=== PATIENT | female | born 2000 | race African-American/Black ===

== ENCOUNTER 2019-10-17 15:47 | Emergency (ER) | payer OTHER ==
[~2019-10-17] VITALS: Ht 157.5 cm; Wt 48.1 kg
[~2019-10-17 15:47] MED LIST: AZITHROMYC200 MG/52 PO; NOHOMEMEDICATIONS; PROAIR HFA8.5 GM IH
[2019-10-17 16:49] LABS: ABSOLUTE NEUTROPHILS 8.1 thou/uL (1.4-8.2); BASOPHILS 0.5 % (0.0-2.0); EOSINOPHILS 1.1 % (0.0-3.0); HEMATOCRIT 34.2 % (37.0-47.0); HEMOGLOBIN 12.1 gm/dL (12.0-15.0); LYMPHOCYTES 15.1 % (24.0-44.0); MCH 32.8 pg (26.0-34.0); MCHC 35.4 g/dL (28.0-37.0); MCV 92.6 fL (80.0-100.0); PLATELET COUNT 302 thou/uL (150-400); POLYS 76.3 % (36.0-66.0); RBC 3.69 mil/uL (4.20-5.00); RDW 13.3 % (10.5-14.5); WBC 10.7 thou/uL (4.0-11.0)
[2019-10-17 16:52] LABS: CALCIUM 8.1 mg/dL (8.5-10.1); CREATININE 0.6 mg/dL (0.6-1.0); POTASSIUM 3.6 mmol/L (3.5-5.1)
[2019-10-17 16:59] LABS: URINE BILIRUBIN NEGATIVE (Negative); URINE BLOOD 3+ (Negative); URINE CLARITY CLEAR; URINE COLOR YELLOW; URINE GLUCOSE-RANDOM* NEGATIVE (Negative); URINE KETONES TRACE (Negative); URINE NITRITE-REFLEX NEGATIVE (Negative); URINE PROTEIN (DIPSTICK) NEGATIVE (Negative)
[2019-10-17 16:59] LABS: ALBUMIN 3.4 g/dL (3.4-5.0); TOTAL BILIRUBIN 1.1 mg/dL (0.2-1.0); TOTAL PROTEIN 7.1 g/dL (6.4-8.2)
[2019-10-17 17:04] LABS: SSA (PROTEIN CONFIRMATORY) NEGATIVE (Negative); URINE LEUKOCYTES-REFLEX 1+ (Negative)
[2019-10-17 17:29] LABS: SQUAMOUS >10 Many /LPF (0-3)
[2019-10-17 17:30] LABS: BACTERIA-REFLEX >30 Many /HPF (None Seen); CASTS None Seen /LPF (None Seen); CRYSTALS None Seen /LPF (None Seen); MUCUS >6 Heavy strn/LPF (None Seen); URINE RBC 3-10 Few /HPF (0-2); URINE WBC-REFLEX 6-15 Few /HPF (0-5)
[2019-10-17 20:30] VITALS: BP 108/55
== END 2019-10-17 20:25 | disposition home or self-care (01) ==
LOC: ER 15:47
PROVIDERS: Physician Assistant
DX: O20.8 Other hemorrhage in early pregnancy (principal); O23.41 Unspecified infection of urinary tract in pregnancy, first trimester; Z67.91 Unspecified blood type, Rh negative; Z3A.11 11 weeks gestation of pregnancy

== ENCOUNTER 2019-12-09 15:17 | Emergency (ER) | payer BC ==
[~2019-12-09] VITALS: Ht 160 cm; Wt 53.5 kg
[2019-12-09] MEDS ORDERED: PNV 29-1 TABLE1 EACH PO (15:27)
[2019-12-09 16:12] LABS: ABSOLUTE NEUTROPHILS 8.3 thou/uL (1.4-8.2); BASOPHILS 0.5 % (0.0-2.0); EOSINOPHILS 1.4 % (0.0-3.0); HEMATOCRIT 31.1 % (37.0-47.0); HEMOGLOBIN 10.8 gm/dL (12.0-15.0); LYMPHOCYTES 15.6 % (24.0-44.0); MCHC 34.8 g/dL (28.0-37.0); MCV 94.6 fL (80.0-100.0); MONOCYTES 7.6 % (1.0-8.0); PLATELET COUNT 272 thou/uL (150-400); POLYS 74.9 % (36.0-66.0); RBC 3.29 mil/uL (4.20-5.00); RDW 13.4 % (10.5-14.5); WBC 11.1 thou/uL (4.0-11.0)
[2019-12-09 16:21] LABS: CALCIUM 8.5 mg/dL (8.5-10.1); CREATININE 0.6 mg/dL (0.6-1.0); POTASSIUM 3.9 mmol/L (3.5-5.1)
[2019-12-09] MEDS ORDERED: VITAFOL-OB+DHA1 EACH PO (18:35)
[2019-12-09 18:47] VITALS: BP 103/61
== END 2019-12-09 18:47 | disposition home or self-care (01) ==
LOC: ER 15:17
PROVIDERS: Physician Assistant
DX: O26.892 Other specified pregnancy related conditions, second trimester (principal); R10.32 Left lower quadrant pain; R11.0 Nausea; Z79.899 Other long term (current) drug therapy; Z3A.19 19 weeks gestation of pregnancy